=== PATIENT | female | born 1940 | race African-American/Black ===

== ENCOUNTER 2018-04-27 15:16 | Emergency (ER) | payer OTHER ==
[~2018-04-27] VITALS: Ht 154.9 cm; Wt 67.6 kg
[2018-04-27 15:30] VITALS: Ht 154.9 cm; Wt 67.6 kg
[2018-04-27 17:12] LABS: BASOPHIL % 1.1 % (0-2); PLATELET COUNT 317 x10^3mcL (130-400); RED CELL DISTRIBUTION WIDTH 12.8 % (11.5-14.5)
[2018-04-27 17:21] LABS: CALCIUM 9.9 mg/dL (8.5-10.1); CARBON DIOXIDE 29.3 mmol/L (21-32); CHLORIDE SERUM 101 mmol/L (98-107); CREATININE SERUM 0.7 mg/dL (0.6-1.0); GLUCOSE SERUM 100 mg/dL (74-106); POTASSIUM SERUM 4.3 mmol/L (3.5-5.1); SODIUM SERUM 137 mmol/L (136-145)
[2018-04-27 17:25] LABS: ALBUMIN 4.2 g/dL (3.4-5.0); ALKALINE PHOSPHATASE 144 U/L (46-116); ALT/SGPT 33 U/L (14-59); BILIRUBIN TOTAL 0.2 mg/dL (0.20-1.00); CHOLESTEROL 225 mg/dL (<200); TOTAL PROTEIN, SERUM 9.5 g/dL (6.4-8.2)
[2018-04-27 17:39] LABS: AST/SGOT 28 U/L (15-37)
[2018-04-27 23:09] VITALS: BP 153/81
== END 2018-04-27 23:09 | disposition home or self-care (01) ==
LOC: ED 15:16
PROVIDERS: Specialist
DX: D32.9 Benign neoplasm of meninges, unspecified (principal); R42 Dizziness and giddiness
CPT/HCPCS: 82962; G0480; J7030; Q0092

== ENCOUNTER 2019-02-19 19:35 | Emergency (ER) | payer OTHER ==
[~2019-02-19] VITALS: Ht 152.4 cm; Wt 67.1 kg
[2019-02-19 19:38] VITALS: Ht 152.4 cm; Wt 67.1 kg
[2019-02-19 20:46] LABS: BASOPHIL % 0.2 % (0-2); PLATELET COUNT 221 x10^3mcL (130-400)
[2019-02-19 20:54] LABS: CARBON DIOXIDE 30.3 mmol/L (21-32); CHLORIDE SERUM 98 mmol/L (98-107); GLUCOSE SERUM 136 mg/dL (74-106); POTASSIUM SERUM 3.4 mmol/L (3.5-5.1); SODIUM SERUM 136 mmol/L (136-145)
[2019-02-19 20:58] LABS: ALBUMIN 3.8 g/dL (3.4-5.0); ALKALINE PHOSPHATASE 75 U/L (46-116); ALT/SGPT 38 U/L (14-59); AST/SGOT 33 U/L (15-37); LIPASE 79 IU/L (73-393); TOTAL PROTEIN, SERUM 7.6 g/dL (6.4-8.2)
[2019-02-19 21:04] LABS: microscopic required? YES; urine erythrocyte TRACE (NEGATIVE)
[2019-02-19 22:42] VITALS: BP 125/59
== END 2019-02-19 22:42 | disposition home or self-care (01) ==
LOC: ED 19:35
PROVIDERS: Emergency Medicine
DX: J18.9 Pneumonia, unspecified organism (principal); I10 Essential (primary) hypertension
CPT/HCPCS: 36415; 87804